=== PATIENT | female | born 1975 ===

== ENCOUNTER 2016-08-15 11:04 | Outpatient (CLI) | payer OTHER ==
[2016-08-15 11:33] VITALS: BMI 31.6
== END 2016-08-15 15:25 | disposition home or self-care (01) ==
LOC: FBCOUT 11:04 → FBC 11:05 → FBCOUT 15:25
PROVIDERS: ATTEND Licensed Practical Nurse
DX: O26.899 Other specified pregnancy related conditions, unspecified trimester (principal); R25.2 Cramp and spasm; Z3A.00 Weeks of gestation of pregnancy not specified; O09.529 Supervision of elderly multigravida, unspecified trimester
CPT/HCPCS: 59025; 81002; G0463

== ENCOUNTER 2016-08-15 21:51 | Inpatient (IN) | payer OTHER ==
[2016-08-15 22:56] VITALS: BMI 32.4
[2016-08-16] MEDS ORDERED: DINOPROSTONE 10 MG SUP VG ONE (06:51)
[2016-08-16] MEDS ORDERED: MINERAL OIL 25 ML BOT ONE (07:34)
[2016-08-16] MEDS ORDERED: IV START KIT ONE (07:34)
[2016-08-16] MEDS ORDERED: OXYTOCIN 10 UNITS/ML VIAL ONE (07:34)
[2016-08-16] MEDS ORDERED: PUMP TUBING ONE (07:35)
[2016-08-16] MEDS ORDERED: SODIUM CHLORIDE 0.9% ONE (07:35)
[2016-08-16] MEDS ORDERED: LIDOCAINE 1% (PRES FREE) 30 ML VIAL ONE (07:35)
[2016-08-16] MEDS ORDERED: LIDOCAINE Viscous 2% 15 ML UDCUP ONE (07:35)
[2016-08-16] MEDS ORDERED: FLUSH ONE (07:35)
[2016-08-16] MEDS ORDERED: OXYTOCIN IN LR 500 ML IV ONE (07:35)
--- NOTE | 2016-08-16 07:44 | US ---
BIOPHYSICAL PROFILE HISTORY: Decreased movement with a nonreactive nonstress test. COMPARISONS: None. FINDINGS: Ultrasonography demonstrates a single live intrauterine gestation in cephalic position. cardiac activity is identified with a heart rate of 144 bpm. The biophysical profile demonstrates a score of 4/8, with point Sloss to 4 absent motion and breathing movements. The four-quadrant amniotic fluid volume is also decreased measured at 6.3 cm. IMPRESSION: 1. A single live intrauterine gestation in cephalic position. 2. A biophysical profile with a score of 4/8. 3. The decreased amniotic fluid volume with a four-quadrant index measured at 6.3 cm. The findings were called to Augie Fontanez at 0527 hours, 08/16/2016, by [facility].
[2016-08-16] MEDS ORDERED: CALCIUM CARBONATE 500 MG TAB.CHEW PO PRN (09:56)
[2016-08-16] MEDS ORDERED: ZOLPIDEM TARTRATE 5 MG TABLET PO PRN (09:56)
--- NOTE | 2016-08-16 10:20 | PCMAN ---
OB Admission Note - History : 5 Term: 4 : 0 Abortions (S&E): 0 Livin EDC:: 08/19/16 Gestational Age (weeks): 39 Days (#/7): 3 Admit Cervical Dilation:: 1 Admit Cervical Effacement (%):: 50 Admit Station:: -3 Admit Presentaton:: Cephalic Membrane Status: Intact Contractions: Yes Contraction Frequency:: q4.5-6 min Heart Rate:: 130 (minimal to moderate variability, accels absent, decels absent ) Status:: Category 2 EFW:: 8lbs Summary of Course:: Onset of care in [place] and at [facility], transfer of care to CNM team at 24wks x9 visits. KENTRELL based on LMP and confirmed by 16wk ultrasound. course complicated by a negative DVT workup at 26wks, mild intermittent asthma treated with inhaler, and AMA status. Pt reports her age to be approximately 36 years old (is not sure of exact birthdate), not 41yo as stated in her chart. Her in her chart was invented when she got her refugee documents to come to the [place] a [place]. Patient is a refugee from [facility]. Her other 4 children were born in a refugee camp in [facility], last baby was born 15 years ago. Pt reports they were uncomplicated pregnancies, although all were "small babies" and she lacked access to proper nutrition during these pregnancies and gained no weight. During the conflict in [facility], she and her were . They reunited 12 years later in [place], where he currently lives and where they conceived this current child. She is awaiting receiving her [place] citizenship and then plans to apply for him to reunite with the rest of their family in the [place] She has had a 29lb total weight gain this . This is her first experience in the [place] Pt was triaged yesterday morning/afternoon and again in the evening in early labor with no cervical change. She had a BPP done during last night's triage due to a non-reactive NST prior to discharging her. BPP was 4/10 with an TWILA of 6.3cm. The recommendation was made to admit her for an IOL due to non- reassuring status and to monitor closely. SALLY discussed this with the pt, her daughters and her (over the phone in [place]), answered questions, and she agreed to IOL. Patient speaks some Bruneian and her teen/young adult daughters are present and interpret as needed for her. An official physical therapist center manager was offered and declined by the patient. - Labs Blood Type: O (+) positive Rubella Status: Immune GBS Status: Negative Abnormal Labs: None Other Labs:: Failed 1hr gtt, passed 3hr gtt - Review of Systems Reports contractions of moderate intensity and some bloody show, denies SROM and decreased movement. - Physical Exam Psych/Mental Status: Mood/Affect Appropriate Lungs: Clear to Auscultation Bilaterally Cardiovascular: Regular Rate and Rhythm Genitourinary: Normal Female Genitalia Skin: Normal Color - Problems (1) Abnormality in heart rate or rhythm, antepartum Status: Acute Code: O36.8990Assessment/Plan: A: 36yo IUP at 39w3d Fetus Category 2 Cervical ripening IOL for BPP 4/10 and borderline TWILA-Coates's score of 4 GBS neg AMA status (age is 36yo, not 41yo as in chart) EFW=8lbs Bag of fu intact P: Discussed recommendation for IOL at length with pt and her daughters. She initially expressed confusion as to why the recommendation was being made and questioned the safety of the IOL for her and baby. I explained the rationale for an IOL due to a non-reassuring BPP result and borderline TWILA. I explained the risks of going home at this point and awaiting spontaneous onset of labor. I explained the options for IOL (cervidil, gonzalez and pitocin) and that they are used very judiciously and cautiously, and that she and baby will be monitored continuously. If we have any concerns about her or baby's safety, I explained that the medication(s)/gonzalez can be removed or turned off to allow time for recuperation. We also discussed that this is a very different experience than with her other 4 pregnancies and labors, which occurred spontaneously and without complication. Her last baby was born 15 years ago as well. Her daughters helped interpret during this discussion. After answering her questions and addressing her concerns, she agreed to stay at the hospital for an IOL. Will initiate IOL with cervidil. Differences between [place] and [place] customs discussed in detail prenatally and pt's preferences addressed. cEFM due to status. Closely monitor status and response to cervidil. Regular diet per cervical ripening protocol Saline lock, CBC ordered Tums and ambien PRN ordered Reassess in 4hrs or PRN
[2016-08-16 10:36] LABS: HEMATOCRIT 40.4 % (37.0-47.0); HEMOGLOBIN 13.6 gm/l (12.0-16.0); MEAN CELL VOLUME 85.8 fl (81.0-99.0); MEAN CORPUSCULAR HEMOGLOBIN 28.9 pg (27.0-31.0); MEAN CORPUSCULAR HGB CONC 33.7 g/dl (33.0-37.0); RED CELL DISTRIBUTION WIDTH 16.7 % (11.5-14.5)
--- NOTE | 2016-08-16 13:45 | PDOC36 ---
Provider Note Subject: S: Pt with many questions about induction, baby's status, induction process. Chinyere device used with Gambian-speaking female carburizing furnace operator. Long discussion about why her labor didn't progress yesterday, baby's non-reactive NST and poor BPP score that necessitated my recommendation for induction of labor, the need for cervical ripening with cervidil prior to causing contractions, what a Bishops' score is and how we use it to guide our decision making, trying to be patient with the process, going slowly in the IOL process due to baby's status. We also discussed how this process is very different that what she experienced going into labor spontaneously with her first four children in [facility] and how it can take longer when we are inducing labor than when it happens spontaneously. O: 1.5cm/70%/-3, mid position, soft. Coates's score=6 Fetus: 130 baseline, minimal to moderate variability, accels present, isolated late deceleration Ctx: q4-5 min lasting 50-100 sec, palpate moderate A: 36yo IUP at 39w4d Fetus Category 2 Cervical ripening IOL for BPP 4/10 and borderline TWILA-Coates's score of 6 GBS neg AMA status (age is 36yo, not 41yo as in chart) Bag of fu intact P: See discussion as documented above. Pt requested an SVE after the conversation with the carburizing furnace operator was over, which revealed an improvement in her Coates's score. Jackie expressed relief that there has been some positive change in her dilation due to the medication. I explained that we should leave the cervidil in at least until 6pm, when the next CNM comes on shift. At that point, she and the CNM can make a plan as to the next step to take in her IOL. Chinyere carburizing furnace operator will need to be used in this future conversation as well. cEFM due to status. Closely monitor status and response to cervidil. Will switch to telemetry so pt can walk. Encourage walking and frequent position changes. Regular diet per cervical ripening protocol Reassess in 2hrs or PRN
[2016-08-16] MEDS: LACTATED RINGERS 1,000 ML IV PRN ×2 (15:33→22:30)
[2016-08-16] MEDS ORDERED: FENTANYL 100 MCG/2 ML VIAL IV PRN (20:20)
--- NOTE | 2016-08-16 20:31 | PDOC36 ---
Provider Note Subject: Progress Note Note: Mile Morales is doing well. Breathing through her contractions. She has spent at least an hour in the tub since removal of the Cervidil. Her ctxs are regular but not strong. She has multiple females in her room who help interpret, one of which is an official instrumentation tech. Ashley reports feeling tired and asked about what she can do to enhance labor. We reviewed walking, AROM or pitocin. Given that we are inducing for a BPP of 4/8, my preference is to AROM, which would help keep her labor progressing naturally. Questions about AROM and pain meeication were answered. Pt reports feeling clear on this decision. O/ AROM at 19:51 for mec stained fluid Cervix 5/90/-1 with Arom FHR 130, accels, variables intermittently, moderate variability Ctxs every 2-3 mins, moderate to palpation Afebrile GBS neg A/ IOL for non-reactive NST and BPP 4/8 AROM Latent labor Cat 2 FHR P/ Continue to evaluate coping Fentanyl or Epidural per pt request Anticipate vaginal
[2016-08-16] MEDS ORDERED: EPIDURAL PUMP SET ONE (23:42)
[2016-08-16] MEDS ORDERED: FENTANYL/ROPIVACAINE EPIDURAL 250 ML EP ONE (23:43)
[2016-08-17] MEDS: LACTATED RINGERS 1,000 ML IV PRN ×2 (00:05→11:23)
[2016-08-17] MEDS: FENTANYL/ROPIVACAINE EPIDURAL 250 ML EP SCH ×2 (00:17→13:57)
[2016-08-17] MEDS ORDERED: EPIDURAL PROCEDURE TRAY ONE (00:20)
[2016-08-17] MEDS ORDERED: ROPIVACAINE 0.5% 30 ML VIAL ONE (00:20)
[2016-08-17] MEDS ORDERED: ONDANSETRON 4 MG/2ML 2 ML VIAL IV PRN ×2 (00:33→05:00)
[2016-08-17] MEDS ORDERED: NALOXONE HCL 0.4 MG/ML VIAL IV PRN ×2 (00:33→05:00)
[2016-08-17] MEDS ORDERED: METOCLOPRAMIDE HCL 5 MG/ML 2ML VIAL IV PRN (00:33)
[2016-08-17] MEDS ORDERED: SODIUM CHLORIDE 0.9% 500 ML IV PRN (00:33)
[2016-08-17] MEDS ORDERED: DIPHENHYDRAMINE HCL 50 MG/1 ML VIAL IV PRN ×3 (00:33→06:17)
[2016-08-17] MEDS ORDERED: LACTATED RINGERS 500 ML IV PRN (00:33)
[2016-08-17] MEDS ORDERED: NALBUPHINE HCL 20 MG/ML AMP IV PRN ×2 (00:33→05:00)
[2016-08-17] MEDS ORDERED: EPHEDRINE SULFATE 50 MG/ML 1ML VIAL IV PRN ×2 (00:33→05:00)
[2016-08-17] MEDS ORDERED: OXYTOCIN IN LR 500 ML IV PRN (00:54)
--- NOTE | 2016-08-17 02:18 | PDOC36 ---
Provider Note Subject: Progress Note Note: Mile Morales is more settled after she received an epidural. She was feeling very tired and wanted to sleep . With the help of her elderly companion geovani we discussed how the epidural worked and it's side effects. She agreed to having one. We also discussed that she may need IV pitocin to augment her labor. She was checked prior to the epidural placement and was 5/60/-1 and had very little ion exchange operator three hours after AROM. O/ 5/60/-1 at 23:20 AROM'd at 19:51 for mec stained fluid FHR 130, occ accels, variables noted, and 2 decelerations into the 60's with good recovery Ctxs are irregular and every 10 mins Afebrile A/ Latent labor Cat 2 FHR Epidural P/ Augment labor with pitocin Position change Avoid exams until patient expresses pelvic pressure or exam is indicated Anticipate vaginal
[2016-08-17] MEDS ORDERED: EPHEDRINE SULFATE UD SYR 25 MG 25 MG/5 ML SYRINGE IV ONE (04:30)
[2016-08-17] MEDS ORDERED: FENTANYL 100 MCG/2 ML VIAL ONE (04:38)
[2016-08-17] MEDS ORDERED: KETAMINE HCL UD SYRINGE 100 MG/2 ML IV ONE (04:40)
[2016-08-17] MEDS ORDERED: OXYTOCIN 10 UNITS/ML VIAL ONE ×3 (04:42→04:46)
[2016-08-17] MEDS ORDERED: SUCCINYLCHOLINE CHL 20 MG/ML DOSE ONE (04:46)
[2016-08-17] MEDS ORDERED: PROPOFOL 20 ML IV ONE (04:46)
[2016-08-17] MEDS ORDERED: MORPHINE SULFATE (DURAMORPH) 1 MG/ML 10ML AMP ONE (04:50)
[2016-08-17] MEDS ORDERED: ONDANSETRON 4 MG/2ML 2 ML VIAL ONE (04:56)
[2016-08-17] MEDS ORDERED: MORPHINE SULFATE 10 MG/ML SYRINGE IV PRN (05:00)
[2016-08-17] MEDS ORDERED: HYDROMORPHONE HCL 1 MG/ML SYRINGE IV PRN (05:00)
[2016-08-17] MEDS ORDERED: MORPHINE SULFATE 2 MG/ML SYRINGE IV PRN (05:00)
[2016-08-17] MEDS ORDERED: PROMETHAZINE HCL 25 MG/ML VIAL IM PRN (05:00)
[2016-08-17] MEDS ORDERED: MORPHINE SULFATE 4 MG/ML SYRINGE IV PRN (05:00)
[2016-08-17] MEDS ORDERED: HYDROMORPHONE HCL 2 MG/ML SYRINGE IV PRN (05:00)
[2016-08-17] MEDS ORDERED: ROPIVACAINE 0.75% 20 ML AMP ONE (05:02)
[2016-08-17] MEDS ORDERED: CEFAZOLIN SODIUM 1,000 MG VIAL ONE (05:39)
[2016-08-17] MEDS ORDERED: IBUPROFEN 800 MG TABLET PO PRN (06:17)
[2016-08-17] MEDS ORDERED: OXYCODONE HCL 5 MG TABLET PO PRN ×2 (06:17→06:35)
[2016-08-17] MEDS ORDERED: LANOLIN 50 APPLIC/7G TUBE TP PRN ×2 (06:17→06:35)
[2016-08-17] MEDS ORDERED: HYDROCODONE/ACETAMINOPHEN 5/325MG TABLET PO PRN (06:17)
[2016-08-17] MEDS ORDERED: DIPHENHYDRAMINE HCL 25 MG CAPSULE PO PRN (06:17)
[2016-08-17] MEDS ORDERED: HYDROMORPHONE HCL 1 MG/ML SYRINGE IV ONE (06:24)
[2016-08-17] MEDS ORDERED: FLU VACC 2016-17 (36MO-64Y)/PF 60 MCG/0.5 ML SYRINGE IM V ONE (07:00)
[2016-08-17] MEDS ORDERED: PRENATAL VIT/FE FUMARATE/FA 1 TABLET PO SCH ×2 (09:00)
[2016-08-17] MEDS ORDERED: DOCUSATE SODIUM 100 MG CAPSULE PO SCH ×2 (09:00)
--- NOTE | 2016-08-17 09:10 | PDOC37 ---
Note:: DATE OF PROCEDURE 08/17/16 PREOPERATIVE DIAGNOSES Term Intolerance to Labor POSTOPERATIVE DIAGNOSES Same PROCEDURE Primary LTCS SURGEON Manuel Buenrostro MD LANDSCAPE FOREMAN Uyen Tan CN ANESTHESIA Epidural COMPLICATIONS None ESTIMATED BLOOD LOSS 800 mL URINE OUTPUT 700 mL IV FLUIDS 1500 mL START TIME 4:33 AM IMPLANTS None SPECIMENS None BRIEF HISTORY 35 yo Jonas at 39 5/7 weeks gestation admitted on 08/16/16 for IOL for BPP of 4/8. She had one dose of miso and progressed to 4 cm with subsequent ARPM at 1951 with mec stained fluid. She then progressed to 7 cm but had a 8 min decal into the 60s. I was called for an emergent CS as the rectification printer OB was delivering a baby in another room. When I arrived the heart rate was in the 130s and we were still explaining the situation to the mother who was having some trouble understanding the severity of the situation. She was asking to wait to see if we could continue on with a vaginal delivery. Uyen explained the seriousness of what was happening and after approximately 10 minutes were able to get a consistent verbal consent to proceed with the procedure. FINDINGS Mec stained membranes Normal tubes, ovaries and uterus OPERATIVE NOTE The patient was taken to the operating room where epidural anesthesia was found to be adequate.~ She was then placed in the dorsal supine position with a leftward tilt. Verbal and written informed consent was obtained. She was prepped and draped in a sterile fashion.~ Surgical timeout was performed confirming the patient's name, date of , surgical procedure to be performed. A Pfannenstiel skin incision was then made with the scalpel and carried through to the underlying layer of fascia.~ The fascia was incised in the midline and the incision extended laterally digitally.~ The superior and inferior aspect of the fascial incision was then grasped and extended digitally. The rectus muscles were then bluntly in the midline, and the peritoneum identified and digitally visualizing the uterus. The lower uterine segment was then incised in a transverse fashion with the scalpel. ~ The uterine incision was then bluntly extended revealing the amniotic sac which was ruptured with meconium fluid.~ The infant's head was grasped, flexed and elevated to level of the hysterotomy and the head was then delivered atraumatically.~ The cord clamped and cut and the infant was noted to be moving with spontaneous respirations and a weak cry immediately at delivery. The infant was handed off to the waiting resuscitation team.~ Cord gases were obtained. The placenta was then removed via cord traction and fundal massage; the uterus was exteriorized and was cleared of all clots and debris.~ The uterine incision was repaired with 0 Vicryl in a running, locked fashion.~ The second layer was imbricated with 0 Vicryl in a running fashion.~~~ Hemostasis was checked and areas of bleeding were repaired with figure of eight stitches using 0 Vicryl and the Bovie. The uterus was internalized and the gutters were cleared of all clots.~ Hemostasis was carefully checked and found to be satisfactory.~ The fascia was reapproximated with 0 Vicryl in a running fashion.~ Bleeding points were Bovie coagulated. The subcutaneous tissue was reapproximated with 0 plain and the skin was closed subcutaneously using 4-0 monocryl with a subcuticular stitch.~ A sterile dressing was placed. The patient tolerated the procedure well.~ Sponge, lap and needle counts were correct times two. The patient was taken to the recovery room in stable condition.
--- NOTE | 2016-08-17 09:11 | PDOC36 ---
Provider Note Note: 35 yo Jonas at 39 5/7 weeks gestation admitted on 08/16/16 for IOL for BPP of 8. She had one dose of miso and progressed to 4 cm with subsequent ARPM at 195 with mec stained fluid. She then progressed to 7 cm but had a 8 min decal into the 60s. I was called for an emergent CS as the instruction dean OB was delivering a baby in another room. When I arrived the heart rate was in the 130s and we were still explaining the situation to the mother who was having some trouble understanding the severity of the situation. She was asking to wait to see if we could continue on with a vaginal delivery. Uyen explained the seriousness of what was happening and after approximately 10 minutes were able to get a consistent verbal consent to proceed with the procedure. Otherwise, please see H&P from admission as CS was emergent.
--- NOTE | 2016-08-17 09:31 | PCMDEL ---
Delivery Note - Delivery Delivery (Date): 08/17/16 Delivery (Time): 04:37 Gender: Female Length: 1 ft 7.25 in Umbilical Cord: 3 Vessel 1 Minute Total: 1 5 Minute Total: 4 Length ROM:: 8.5 hrs Comments:: Delivery Note: Patient is a 41 year-old with an KENTRELL of 08/19/16 who presents to L&D at 39 weeks and 5 days gestation. Her care has been complicated by AMA, unknown age (38-43 ys), refugee with transfer of care in from [place] and [facility]. Yesterday she was admitted to the unit for a non- reassuring NST and a BPP of 4/8. She received one dose of miso through the day and was noted to be cristal after this. By 7:45pm she had not changed her cervix from 4cms so we discussed management options at this point. AROM was discussed as an effective way to enhance labor and the pt agreed to this. She was AROM'd for mec stained fluid at 19:51. Through the night the FHR was 130, with minimal to moderate variability, variables and 3 decelerations that lasted approx 1 min and went down in to the 60's. There was appropriate recovery from the decels with position change. There were accels through the night, however, they were noticeably fewer and far between. Patient was started on Pitocin at approx 2;30am and was at 2mu/ min at the time of the prolonged deceleration. This was turned off when there was no evidence of recovery from the 60's. At 03:45 the RN called me to the room for an IUPC, due to a poor tracing of the variables. The pt was counseled on its use. At this point she was laid down for insertion. During insertion the FHR dropped into the 60's and did not recover with left side position change or hands and knees. The patient was 7cms/-1. LOTTERIES AGENT and OB were called. Dr. Barragan was in a delivery and so Dr. Buenrostro was called. He arrived at the OR as the situation was discussed with the patient. At this point a section was being considered. The FHR recovered in to the 130's, however, the FHR dropped again into the 60's two more times. With Dr. Buenrostro the pt verbally consented to a . The Baby was born at 4:37am by emergency . Her niece was with her interpreting. The baby was born with her eyes wide open, she had tone and was moving. The cord was clamped and cut and baby passed to the peds team. She was moved to the nursery, where [facility] was called, and the NICU team assisted with her recovery. She was subsequently shipped to [facility] and is stable. Will try and get Rahma up there today if possible. The baby also appears to have undiagnosed Downs Syndrome. At this time only the niece is aware of this until confirmation/genetic testing is done. Overall impression is that this baby appeared post-dates, with peeling and mec stained skin. The patient was admitted on 08/16/16, 06:00. Membranes ruptured on 08/16/16 at 19:51 for light mec stained fluid. Induction/augmentation agents: AROM, pitocin heart rate tracing revealed category 1 and 2 tracing. Anesthesia: Epidural
[2016-08-17 13:55] VITALS: BP 98/56
[2016-08-17] MEDS: LACTATED RINGERS 1,000 ML IV SCH (13:58)
[2016-08-17] MEDS ORDERED: LACTATED RINGERS 1,000 ML ONE (14:01)
--- NOTE | 2016-08-17 15:22 | PDOC36 ---
Provider Note Subject: Transfer note Note: Pt had primary LTCS for NRFHT, emergently this AM. Baby was transferred to [facility] this AM for resp distress. Pt wanted to be transferred to be with baby and to breastfeed. Pt is doing well post op. Pain well controlled. Appetite has returned and diet has been progressing as tolerated. PE: Last Vital Signs Temp 98.9 F 08/17/16 13:48 Pulse 90 08/17/16 13:48 Resp 16 08/17/16 13:48 BP 98/56 08/17/16 13:48 Pulse Ox 99 08/17/16 13:48 GEN: NAD ABD: incision dressing intact, small amount of blood EXT: no c/c/e A/P: 41 yo s/p emergent LTCS this AM for NRFHT/prolonged decel Doing well Transfer to be with baby and be able to breastfeed. Dr. Islas is the accepting physician Transfer to [facility] Stable for transfer
[2016-08-18] MEDS ORDERED: DIPHENHYDRAMINE HCL 50 MG/1 ML VIAL IV PRN (05:00)
[2016-08-18] MEDS ORDERED: DIPHENHYDRAMINE HCL 25 MG CAPSULE PO PRN (05:00)
--- NOTE | 2016-08-19 12:34 | SURGPATH ---
[facility] [address] [place] [id number] Patient Name: ANGIE MURRAY MR#: [id number] : 1975 Gender: F Specimen #: [id number] Collected: 08/17/2016 Received: 08/18/2016 Reported: 08/19/2016 Submitting Phys: JULIEN AGUAYO Copy To Phys: [facility] Clinical History / Pre-Operative Diagnosis: NONE PROVIDED Specimen Source / Surgical Procedure Performed: PLACENTA Interpretation: PLACENTA, DELIVERY: - ACUTE CHORIOAMNIONITIS Electronically Signed Out Evans Camarena M.D. Gross Description: The specimen is received in a formalin filled container labeled with the patient's name and "placenta". A 17 x 1 cm, normally coiled, three vessel umbilical cord inserts 1 cm from the nearest edge of a 16 x 14 x 3 cm, 507 g discoid placenta. The surface and membranes are glistening and green ulloa. The membranes insert normally. There is focal peripheral pale ulloa subchorionic fibrin. The maternal surface is red-brown spongy without missing cotyledons. There are focal pale ulloa maternal surface calcifications. Sectioning to the disc reveals no nodule or induration. Gross summary: Ramos placenta with marginal cord insertion, green ulloa discoloration suggestive of meconium staining, subchorionic fibrin and maternal surface calcifications. Summary of sections: A-umbilical cord and membranes B-edge section adjacent to umbilical cord insertion site including subchorionic fibrin C-random full thickness section Vira Larose Microscopic Description: Cross sections of umbilical cord contain 3 vessels. The membrane roll contains collections of neutrophils. Sections of placental disc revea; mature chorionic villi. Focally increased numbers of neutrophils are seen within fibrin immediately deep to the surface of the disc. The small amount of attached decidua is unremarkable. 1: [id number] O41.1230
== END 2016-08-17 15:59 | disposition short-term general hospital (02) | DRG 766 ==
LOC: FBCOUT 21:51 → FBC 21:51 → FBCOUT 08-16 06:00
PROVIDERS: ADMIT Registered Nurse; ATTEND Family Medicine
PROC: 3E0P7GC Introduction of Other Therapeutic Substance into Female Reproductive, Via Natural or Artificial Opening (ICD-10-PCS; 2016-08-16)
PROC: 10907ZC Drainage of Amniotic Fluid, Therapeutic from Products of Conception, Via Natural or Artificial Opening (ICD-10-PCS; 2016-08-16)
PROC: 10H07YZ Insertion of Other Device into Products of Conception, Via Natural or Artificial Opening (ICD-10-PCS; 2016-08-16)
PROC: 4A1H74Z Monitoring of Products of Conception, Cardiac Electrical Activity, Via Natural or Artificial Opening (ICD-10-PCS; 2016-08-16)
PROC: 10D00Z1 Extraction of Products of Conception, Low, Open Approach (ICD-10-PCS; principal; 2016-08-17)
DX: O76 Abnormality in fetal heart rate and rhythm complicating labor and delivery (principal); O09.523 Supervision of elderly multigravida, third trimester; O09.43 Supervision of pregnancy with grand multiparity, third trimester; O77.0 Labor and delivery complicated by meconium in amniotic fluid; O62.1 Secondary uterine inertia; Z3A.39 39 weeks gestation of pregnancy; Z37.0 Single live birth